=== PATIENT | male | born 1950 | race Caucasian/White ===

== ENCOUNTER → 2018-07-07 | Outpatient (CLI) | payer MEDICARE, OTHER ==
--- NOTE | 2018-07-08 11:44 | Diagnostic Imaging Report ---
INDICATION: History of right thyroidectomy in 1970s. Patient reportedly has a left thyroid nodule. TECHNIQUE: The patient was administered 200 ?Ci of I-123 orally. 4 hour and 24 hour thyroid uptake was performed. Thyroid scan was also performed. COMPARISON: No prior studies are available for comparison. FINDINGS: 4 hour thyroid uptake is 7%. 24 hour uptake is 20%, within normal limits. The right lobe of the thyroid is surgically absent. No residual activity in the right thyroid bed is seen. There appears to be fairly homogeneous uptake of activity throughout the left lobe although there is a suggestion of very mild photopenia overlying the lower pole on the anterior and ROMANIAN view. Correlation to nodule location is recommended, as no prior studies are available for comparison. No hot nodule is identified. IMPRESSION: 1. Normal 24-hour thyroid uptake. 2. Status post right thyroidectomy. 3. Questionable photopenia overlying the lower pole of the left lobe, suspicious for a cold nodule. Correlation to nodule location on outside imaging is recommended. Dictated by: Dictated on workstation # [id number]
== END ==
LOC: CARD 10:56
PROVIDERS: ATTEND Otolaryngology Otolaryngology/Facial Plastic Surgery
DX: E03.9 Hypothyroidism, unspecified (principal)
CPT/HCPCS: 78014

== ENCOUNTER → 2018-07-30 | Outpatient (CLI) | payer MEDICARE, OTHER ==
--- NOTE | 2018-07-30 11:56 | Diagnostic Imaging Report ---
INDICATION: Left lobe thyroid nodule. Sonographic guidance was provided for Dr. Garza for a left thyroid nodule FNA. Images demonstrate circumscribed solid mass involving left thyroid lobe. Echogenic needle tip is identified within the nodule. IMPRESSION: Sonographic guidance for left lobe thyroid nodule FNA. Dictated by: Dictated on workstation # [id number]
== END ==
LOC: RAD 10:26
PROVIDERS: ATTEND Otolaryngology Otolaryngology/Facial Plastic Surgery
DX: E04.1 Nontoxic single thyroid nodule (principal)
CPT/HCPCS: 76942

== ENCOUNTER → 2019-02-08 | Outpatient (CLI) | payer MEDICARE, OTHER ==
--- NOTE | 2019-02-08 10:35 | Diagnostic Imaging Report ---
PROCEDURE: US Thyroid. TECHNIQUE: Multiple real-time grayscale images were obtained of the thyroid in various projections. INDICATION: Status post right thyroidectomy. Patient has left thyroid nodule. FINDINGS: Right thyroid surgically absent. Left thyroid lobe measures 6.1 x 2.9 x 3.0 cm. Multiple left-sided nodules are present, largest in the lower pole measuring 2.5 x 2.1 x 2.3 cm. Additional nodules are present with the next largest nodule in the mid and slightly medial left lobe measuring 1.9 x 1.1 x 1.5 cm. No microcalcifications are seen. IMPRESSION: Left-sided thyroid masses. Dominant nodule has reportedly been biopsied by Dr. Garza. Dictated by: Dictated on workstation # [id number]
== END ==
LOC: RAD 09:11
PROVIDERS: ATTEND Otolaryngology Otolaryngology/Facial Plastic Surgery
DX: E04.2 Nontoxic multinodular goiter (principal); Z90.89 Acquired absence of other organs
CPT/HCPCS: 76536

== ENCOUNTER → 2019-02-12 | Outpatient (CLI) | payer MEDICARE, OTHER ==
[2019-02-12 11:46] LABS: ABSOLUTE RETIC # 32 10e9/L (24-90); HEMATOCRIT 26 % (40-54); MEAN CORPUSCULAR HEMOGLOBIN 24 PG (25-34); MEAN CORPUSCULAR HGB CONC 30 G/DL (32-36); MEAN CORPUSCULAR VOLUME 78 FL (80-99); MEAN PLATELET VOLUME 8.5 FL (7.4-10.4); PLATELET COUNT 104 10^3/uL (130-400); RED CELL DISTRIBUTION WIDTH 24.8 % (10.0-14.5); RETICULOCYTE % 0.95 % (0.50-2.40)
[2019-02-12 11:51] LABS: WHITE BLOOD COUNT 78.1 10^3/uL (4.3-11.0)
[2019-02-12 12:52] LABS: BASOPHILS % (MANUAL) 1 %; EOSINOPHILS % (MANUAL) 36 %; LYMPHOCYTES % (MANUAL) 8 %; METAMYELOCYTES % 8 %; MYELOCYTES % 1 %
[2019-02-12 12:53] LABS: BLAST CELLS 3 %; NUCLEATED RED BLOOD CELLS 2
[2019-02-12 12:54] LABS: MONOCYTES % (MANUAL) 19 %
[2019-02-12 12:56] LABS: ANISOCYTOSIS MARKED; MICROCYTOSIS SLIGHT; NEUTROPHILS % (MANUAL) 24 %
== END ==
LOC: LAB 11:31
PROVIDERS: ATTEND Nurse Practitioner Family
DX: D72.829 Elevated white blood cell count, unspecified (principal)
CPT/HCPCS: 36415; 85007; 85027; 85045; 88377

== ENCOUNTER 2019-02-19 09:47 | Outpatient (RCR) | payer MEDICARE, OTHER ==
[2019-02-17 10:11] LABS: ABSOLUTE RETIC # 66 10e9/L (24-90); HEMATOCRIT 25 % (40-54); HEMOGLOBIN 7.6 G/DL (13.3-17.7); MEAN CORPUSCULAR HEMOGLOBIN 23 PG (25-34); MEAN CORPUSCULAR HGB CONC 30 G/DL (32-36); MEAN CORPUSCULAR VOLUME 77 FL (80-99); MEAN PLATELET VOLUME 9.2 FL (7.4-10.4); PLATELET COUNT 111 10^3/uL (130-400); RED CELL DISTRIBUTION WIDTH 24.7 % (10.0-14.5); RETICULOCYTE % 2.03 % (0.50-2.40)
[2019-02-17 10:15] LABS: WHITE BLOOD COUNT 87.4 10^3/uL (4.3-11.0)
[2019-02-17 11:16] LABS: ANISOCYTOSIS MODERATE; BAND NEUTROPHILS 11 %; BASOPHILS % (MANUAL) 1 %; BLAST CELLS 1 %; EOSINOPHILS % (MANUAL) 37 %; LYMPHOCYTES % (MANUAL) 4 %; METAMYELOCYTES % 1 %; MICROCYTOSIS SLIGHT; MONOCYTES % (MANUAL) 15 %; MYELOCYTES % 2 %; NEUTROPHILS % (MANUAL) 28 %; NUCLEATED RED BLOOD CELLS 1; POIKILOCYTOSIS SLIGHT
[~2019-02-19 09:47] MED LIST: LIDOCAINE 1% 20 ML (XYLOCAINE) VIAL CANCER CTR ONE
[2019-03-08 16:19] LABS: MISC LAB TEST & RESULT FISH PDGFR-BETA
== END 2019-05-18 | disposition home or self-care (01) ==
LOC: ONC 09:47
PROVIDERS: ATTEND Internal Medicine Hematology & Oncology
DX: C92.00 Acute myeloblastic leukemia, not having achieved remission (principal); Z87.891 Personal history of nicotine dependence
CPT/HCPCS: 36415; 38222; 81270; 85007; 85027; 85045; 88230; 88262; 88305; 88311; 88313; 88377; 99213